=== PATIENT | female | born 1980 | race Two or more races ===

== ENCOUNTER 2025-10-29 15:19 | Emergency (ER) | payer MEDICAID, OTHER ==
[~2025-10-29] VITALS: Ht 152.4 cm; Wt 76.1 kg
[2025-10-29] MEDS: SODIUM CHLORIDE 0.9% 1,000 ML IV ONE (16:00)
--- NOTE | 2025-10-29 16:03 | ED.PDOC ---
General HPI Comments HPI: 45 y/o F, presents to the ED for CC of back pain. Patient states, she has been experiencing left sided lower lumbar back pain that radiates to her left inguinal area x2days. Patient reports, further associated symptoms of nausea, dizziness, chills, and vomiting. Patient denies hematuria, fever, diarrhea, or vaginal discharge. No other symptoms or modifying factors are present at this time. Initial Vitals BP: HR: RR: O2: Temp: Past Medical History: Denies Any Past Surgical History: Denies Any Social History: Denies Any Medications: Denies Any Allergies: NKA HPI: Poor Historian. REVIEW OF SYSTEMS: CONSTITUTIONAL: Denies acute: fever, diaphoresis, HEAD: Denies acute: headache, photophobia Eyes: Denies acute: Double vision, vision loss, eye pain, eye discharge. EARS: Denies acute: tinnitus, hearing loss, ear discharge, ear pain, THROAT: Denies acute: sore throat, swelling, difficulty swallowing , pain with swallowing, change in voice. NECK: Denies acute: neck pain, neck swelling, stiff neck. HEART: Denies acute : chest pain, palpitations, LUNGS: Denies acute: SOB, wheezing, cough, hemoptysis ABDOMEN: Denies acute: diarrhea, melena , hematemesis, hematochezia SKIN: Denies acute: rash, redness, lesions, itchiness. EXTREMITIES: Denies acute: calf pain, numbness, tingling, weakness, denies pain in extremity. Denies acute: Neuro: Denies acute: focal neurological deficit, motor or sensory focal neurological deficit, tremors, seizure like activity, confusion, change in mental status, loss of bowel or bladder function, cauda equina like symptoms. : Denies acute: dysuria, hematuria, flank pain, increase in urinary frequency. PSYCH: Denies acute: hallucination, suicidal ideation, homicidal ideation. FEMALE: Denies acute: abnormal vaginal bleeding, foul odor, unusual discharge. PHYSICAL EXAM: General: ----mild----acute distress, awake and alert. Head: normocephalic, atraumatic. No raccoon's eyes, no josé sign. Neck: supple, trachea is midline, no swelling. Throat: Normal phonation. Eyes:, no erythema, no purulent discharge, no proptosis, no icterus. Heart: regular rate, regular rhythm, no significant murmur appreciated. Lungs: no apparent respiratory distress, Able to speak in full sentences. No wheezing, no rhonchi, no crackles. No stridors Clear to auscultation bilaterally. Abdomen: LLQ tender to palpation, non distended, soft, no guarding, no rebound, + bowel sounds. Neuro: Awake, Alert, oriented to name, self, situation, follows commands GCS=15. Speech is normal. Skin: no petechia, no purpura, no cyanosis, non-pale, not jaundice. Lower extremities: --no - Pitting edema no deformity, no focal swelling, no calf TTP. Makes eye contact. moves all four extremities. Face: no apparent facial droop. No CVA tenderness to percussion bilaterally. Ambulating in the ED independently. ED COURSE: DISCLAIMER: This medical document was created using an electronic medical record system with voice recognition software and computerized dictation system. Although this document has been carefully reviewed, there might still be some phonetic and typographical errors. Occasional wrong-word or "sound-alike" substitutions may have occurred due to the inherent limitations of voice recognition software. These areas are purely typographical due to imperfections of the software programs and do not reflect any compromise in the patient's medical care. Please read the chart carefully and recognize, using context, where these substitutions have occurred. Chief Complaint: Flank Pain Time Seen by MD: 15:50 Reviewed notes: Medications, Allergies Allergies: Coded Allergies: No Known Drug Allergy (Verified Allergy, Unknown, 10/29/25) Information Source: Patient Mode of Arrival: Ambulatory Prehospital treatment: None associated signs and symptoms: Back Pain Was a procedure done? Was a procedure done?: No Differential Diagnosis Kidney stone (Female): Other (Flank Pain;DDX include Nephrolethiasis, obstructive uropathy, kidney cancer, renal infarct, intraabdominal neoplasm, lower lobe pneumonia, retroperitoneal hemorrhage, pancreatitis, aneurysm, dissection, musculoskeletal, rib contusion/trauma, hematoma, PYLONEPHRITIS, muscle strain, spinal disease. IN A FEMALE) Urinary Problem (Female): Pyelonephritis, Urolithiasis, UTI X-Ray, Labs, Meds, VS Vital Signs Date Time Temp Pulse Resp B/P (MAP) Pulse Ox O2 Delivery O2 Flow Rate FiO2 10/29/25 22:35 98.5 83 13 133/90 (104) 96 98.5 10/29/25 20:44 98.3 89 16 158/103 (121) 96 98.3 10/29/25 19:35 97.6 87 14 147/100 (116) 100 97.6 10/29/25 15:21 97.7 107 16 155/102 98 97.7 Lab Test 10/29/25 16:19 10/29/25 16:05 Range/Units White Blood Count 10.4 4.4-10.8 10^3/uL Red Blood Count 5.41 H 4.0-5.20 10^6/uL Hemoglobin 16.0 12.2-16.2 g/dL Hematocrit 46.2 H 36.0-46.0 % Mean Corpuscular Volume 85.5 80.0-100.0 fL Mean Corpuscular Hemoglobin 29.6 28.0-32.0 pg Mean Corpuscular Hemoglobin Concent 34.7 32.0-36.0 g/dL Red Cell Distribution Width 12.5 11.8-14.3 % Platelet Count 277 140-450 10^3/uL Mean Platelet Volume 9.4 6.9-10.8 fL Neutrophils (%) (Auto) 60.5 37.0-80.0 % Lymphocytes (%) (Auto) 29.9 10.0-50.0 % Monocytes (%) (Auto) 8.0 0.0-12.0 % Eosinophils (%) (Auto) 1.3 0.0-7.0 % Basophils (%) (Auto) 0.3 0.0-2.0 % Neutrophils # (Auto) 6.3 1.6-8.6 10 ^3/uL Lymphocytes # (Auto) 3.1 0.4-5.4 10 ^3/uL Monocytes # (Auto) 0.8 0-1.3 10 ^3/uL Eosinophils # (Auto) 0.1 0-0.8 10 ^3/uL Basophils # (Auto) 0 0-0.2 10 ^3/uL Nucleated Red Blood Cells 0.1 % Sodium Level 143 136-145 mmol/L Potassium Level 3.6 3.5-5.1 mmol/L Chloride Level 111 H 98-107 mmol/L Carbon Dioxide Level 23 20-31 mmol/L Anion Gap 9 5-15 Blood Urea Nitrogen 10 9-23 mg/dL Creatinine 0.96 0.550-1.02 mg/dL Glomerular Filtration Rate Calc 74 >90 mL/min BUN/Creatinine Ratio 10.4 10.0-20.0 Serum Glucose 94 74-106 mg/dL Lactic Acid Level 1.1 0.4-2.0 mmol/L Calcium Level 11.6 H 8.7-10.4 mg/dL Total Bilirubin 0.4 0.2-1.0 mg/dL Aspartate Amino Transferase (AST) 19 13-40 U/L Alanine Aminotransferase (ALT) 30 7-40 U/L Alkaline Phosphatase 138 H 46-116 U/L Total Protein 7.9 5.7-8.2 g/dL Albumin 4.6 3.2-4.8 g/dL Urine Color Yellow Yellow Urine Clarity Turbid H Clear Urine pH 5.5 5.0-9.0 Urine Specific [place] 1.021 1.001-1.035 Urine Protein Trace H Negative Urine Ketones Negative Negative Urine Blood 3+ H Negative /uL Urine Nitrite Negative Negative Urine Bilirubin Negative Negative Urine Urobilinogen Normal Negative mg/dL Urine Leukocyte Esterase 1+ Negative /uL Urine RBC 326 0 - 4 /hpf Urine Microscopic WBC 7 H 0-5 /HPF Urine Squamous Epithelial Cells Few <5 /hpf Urine Calcium Oxalate Crystals Many None Seen Urine Bacteria Few H None Seen /hpf Urine Hyaline Casts Few 0 - 2 /lpf Urine Mucus Few None Seen Urine Glucose Normal Normal mg/dL Microbiology Date/Time Source Procedure Growth Status 10/29/25 16:19 Blood Blood Culture - Preliminary NO GROWTH AFTER 72 HOURS OF INCUBATION. Resulted 10/29/25 16:17 Blood Blood Culture - Preliminary NO GROWTH AFTER 72 HOURS OF INCUBATION. Resulted [place] [id number] Ph: [phone] DIAGNOSTIC IMAGING Diagnostic Imaging Report : [id number] Signed PATIENT: JIMMIE CATSILLOT: [id number] UNIT: [id number] : 1980 LOC: ER ROOM / BED: / AGE / SEX: 45 / F ADM STATUS: REG ER SERVICE 1600 ORDERING PHYSICIAN: QUANG RASMUSSEN DO PROCEDURE(s): ABPL - CT AB PEL WO CON-NO ORAL OR IV REASON: L LOW BACK PAIN, LLQ PAIN ORDER NUMBER(s): [id number], ACCESSION NUMBER(s): [id number] EXAM: CT CT AB PEL WO CON-NO ORAL OR IV History: L LOW BACK PAIN, LLQ PAIN Comparison Study: None TECHNIQUE: Multidetector CT of the abdomen AND PELVIS without IV contrast. Axial, coronal and sagittal multiplanar reformats were obtained from the axial data set by the technologist. Radiation Dose Information: CT Dose: CTDI volume is 12.3 mGy. Dose-length product is 656.38 mGy*cm FINDINGS: Bibasilar atelectasis. Partially visualized heart is unremarkable. Liver, spleen, gallbladder, pancreas and right adrenal gland are unremarkable. Left adrenal hyperplasia. Asymmetric mild left-sided perinephric Fat stranding. No Hydronephrosis bilaterally. Mild fat stranding adjacent to the left ureter. 0.5 x 0.4 cm obstructing calculus within the left distal ureter. Urinary bladder is decompressed limiting evaluation. Intrauterine device is noted in place. Otherwise, uterus and adnexa unremarkable. Stomach is unremarkable. Small bowel loops unremarkable. Appendix is unrema rkable. Moderate amount of fecal material within the colon. No evidence of intraperitoneal free air or free fluid. No evidence of aortic aneurysm. Shotty mesenteric lymph nodes. The soft tissues are unremarkable. No evidence of acute osseous abnormalities. Sclerotic focus over the right femoral head which may represent a small bone island. IMPRESSION: 0.5 x 0.4 cm obstructing calculus of the left distal ureter with mild left-sided perinephric periureteral fat stranding and without significant associated hydronephrosis. Moderate amount of fecal material within the colon. ATED BY: MARIA DE JESUS CASTRO DO DICTATED DATE/TIME: 10/29/251703 SIGNED BY: MARIA DE JESUS CASTRO DO SIGNED DATE/TIME: 10/29/251703 CC: Time of 1ST Reevaluation: 16:20 Reevaluation 1ST: Unchanged Time of 2ND Reevaluation: 19:40 (The case was discussed with the [facility] admitting team (HPI, physical exam, labs and diagnostic tests that were available at the time of disposition, ED course, treatment plan) on the phone. They agreed to transfer the patient to their service by ALS for further evaluation and treatment. Dr. Joe. - Authorization number is---[id number]-. ) Reevaluation 2ND: Improved Patient Education/Counseling: Diagnosis, Treatment Family Education/Counseling: No Family Present Comments MDM: patient presented with the above HPI.--abdominal pain----workup was initiated. patient was found with the above mentioned diagnosis. the following medications were ordered: please refer to order lists of meds and tests obtained by myself Dr. Rasmussen. Patient ED course and VS have been stabilized. Patient has been reassessed in the ED and remained in a stable condition. Pertinent incidental findings were discussed with the patient and/or family. Patient/family voices understanding and is agreeable with plan. Patient has been observed in the ED adequate length of time to insure improvement/stability. Escalation of care considered: Consideration of escalation to observation or admission Patient was tachycardic on arrival. Patient was given fluids and antibiotics antiemetics. Patient was found with a kidney stone with the associated perinephric stranding concerning for pyelonephritis. Patient was given Flomax and pain medications Patient was transferred to [facility] per insurance requirement to the medicine team for further evaluation and treatment of their presentation. All the reports of any imaging studies that were ordered by myself were reviewed by myself. SEPSIS Sepsis Screen Date sepsis recognized/suspect: Oct 29, 2025 Time Sepsis recognized/suspect: 1523 Recent Procedure: No On Antibiotic Therapy: No Respiratory Rate >20: No Heart Rate >90: No Temp<36 C (96.8 F) or >38.3 C: No SBP <90 or MAP <65 mmHG: No New Acute Mental Status Change: No Is the patient on CPAP, BIPAP,: No Physician Orders Mold Car Pusher (10/29/25 ) Ct Ab Pel Wo Con-No Oral Or Iv (10/29/25 16:00) Blood Culture (10/29/25 16:00) Imaging Transfer Request (10/29/25 21:37) Vital Signs Date Time Temp Pulse Resp B/P (MAP) Pulse Ox O2 Delivery O2 Flow Rate FiO2 10/29/25 22:35 98.5 83 13 133/90 (104) 96 98.5 10/29/25 20:44 98.3 89 16 158/103 (121) 96 98.3 10/29/25 19:35 97.6 87 14 147/100 (116) 100 97.6 10/29/25 15:21 97.7 107 16 155/102 98 97.7 Laboratory Tests Test 10/29/25 16:19 Lactic Acid Level 1.1 mmol/L (0.4-2.0) White Blood Count 10.4 10^3/uL (4.4-10.8) Departure 1 Departure Time of Disposition: 17:49 Impression: Primary Impression: Urinary tract obstruction by kidney stone Additional Impressions: UTI (urinary tract infection) Chills Pyelonephritis Disposition: ADMITTED INPATIENT Admit to: [facility] Condition: Guarded Discharged With: Self Critical Care Note Critical Care Time?: No I personally scribed for QUANG RASMUSSEN DO ([email or web address]) on 10/29/25 at 16:03. Electronically submitted by Franchesca Owens ([email or web address]). I personally scribed for QUANG RASMUSSEN DO ([email or web address]) on 10/29/25 at 17:12. Electronically submitted by Franchesca Owens ([email or web address]). QUANG RASMUSSEN DO Oct 29, 2025 16:03
[2025-10-29 16:18] LABS: Urine Protein, UAD TRACE (Negative)
[2025-10-29 16:44] LABS: Hematocrit 46.2 % (36.0-46.0); Hemoglobin 16.0 g/dL (12.2-16.2); Mean Corpuscular Hemoglobin 29.6 pg (28.0-32.0); Mean Corpuscular Volume 85.5 fL (80.0-100.0); Nucleated Red Blood Cells % 0.1 %
[2025-10-29] MEDS: ONDANSETRON HCL 4 MG/2 ML VIAL IV ONE (16:53)
[2025-10-29 17:02] LABS: Alanine Aminotransferase 30 U/L (7-40); Albumin 4.6 g/dL (3.2-4.8); Anion Gap 9 (5-15); BUN/Creatinine Ratio 10.4 (10.0-20.0); Blood Urea Nitrogen 10 mg/dL (9-23); Carbon Dioxide 23 mmol/L (20-31); Glucose 94 mg/dL (74-106); Potassium 3.6 mmol/L (3.5-5.1); Sodium 143 mmol/L (136-145); Total Protein 7.9 g/dL (5.7-8.2)
[2025-10-29 17:03] LABS: Alkaline Phosphatase 138 U/L (46-116); Bilirubin, Total 0.4 mg/dL (0.2-1.0); Calcium 11.6 mg/dL (8.7-10.4); Chloride 111 mmol/L (98-107)
--- NOTE | 2025-10-29 17:06 | DVH ---
EXAM: CT CT AB PEL WO CON-NO ORAL OR IV History: L LOW BACK PAIN, LLQ PAIN Comparison Study: None TECHNIQUE: Multidetector CT of the abdomen AND PELVIS without IV contrast. Axial, coronal and sagittal multiplanar reformats were obtained from the axial data set by the technologist. Radiation Dose Information: CT Dose: CTDI volume is 12.3 mGy. Dose-length product is 656.38 mGy*cm FINDINGS: Bibasilar atelectasis. Partially visualized heart is unremarkable. Liver, spleen, gallbladder, pancreas and right adrenal gland are unremarkable. Left adrenal hyperplasia. Asymmetric mild left-sided perinephric Fat stranding. No Hydronephrosis bilaterally. Mild fat stranding adjacent to the left ureter. 0.5 x 0.4 cm obstructing calculus within the left distal ureter. Urinary bladder is decompressed limiting evaluation. Intrauterine device is noted in place. Otherwise, uterus and adnexa unremarkable. Stomach is unremarkable. Small bowel loops unremarkable. Appendix is unremarkable. Moderate amount of fecal material within the colon. No evidence of intraperitoneal free air or free fluid. No evidence of aortic aneurysm. Shotty mesenteric lymph nodes. The soft tissues are unremarkable. No evidence of acute osseous abnormalities. Sclerotic focus over the right femoral head which may represent a small bone island. IMPRESSION: 0.5 x 0.4 cm obstructing calculus of the left distal ureter with mild left-sided perinephric periureteral fat stranding and without significant associated hydronephrosis. Moderate amount of fecal material within the colon.
[2025-10-29] MEDS: HYDROcodone-ACET 5/325MG TAB PO ONE (20:38)
[2025-10-29] MEDS: TAMSULOSIN HYDROCHLORIDE 0.4 MG CAP PO ONE (20:39)
[2025-10-29 22:35] VITALS: BP 133/90; PULSE 83; RESP 13; TEMP 98.5; O2SAT 96
== END 2025-10-29 22:58 | disposition home or self-care (01) ==
LOC: ER 15:19
DX: N20.2 Calculus of kidney with calculus of ureter (principal); N39.0 Urinary tract infection, site not specified; R68.83 Chills (without fever); N12 Tubulo-interstitial nephritis, not specified as acute or chronic
CPT/HCPCS: 36415; 74176; 80053; 81001; 83605; 85025; 87040; 96365; 96375; 99285; J0696; J2405; J7030